=== PATIENT | male | born 1960 | race African-American/Black ===

== ENCOUNTER 2021-07-05 06:29 | Inpatient (IN) | payer MEDICAID ==
[~2021-07-05] VITALS: Ht 170.2 cm; Wt 72.7 kg
[2021-07-05 08:31] LABS: BASOPHILS % 1.3 % (0.0-2.0); EOSINOPHILS % 2.2 % (0.0-5.0); HEMOGLOBIN. 13.9 g/dL (14.0-18.0); LYMPHOCYTES % 25.9 % (20.0-50.0); MEAN CORPUSCULAR HEMOGLOBIN 29.6 pg (28.0-32.0); MEAN CORPUSCULAR VOLUME 89.2 fL (80.0-94.0); MEAN PLATELET VOLUME 8.2 fl (7.4-10.4); MONOCYTES % 10.8 % (2.0-8.0); NEUTROPHILS % 59.8 % (40.0-76.0); PLATELET 309 x1000/uL (130-400); RED CELL DISTRIBUTION WIDTH 14.3 % (11.6-14.6)
[2021-07-05 08:36] LABS: CHLORIDE 109 mEq/L (98-107)
[2021-07-05 09:53] LABS: EOSINOPHILS % 1.7 % (0.0-5.0); HEMATOCRIT. 40.1 % (42.0-52.0); HEMOGLOBIN. 13.7 g/dL (14.0-18.0); LYMPHOCYTES % 21.5 % (20.0-50.0); MEAN CORPUSCULAR VOLUME 87.8 fL (80.0-94.0); MEAN PLATELET VOLUME 7.8 fl (7.4-10.4); MONOCYTES % 9.3 % (2.0-8.0); NEUTROPHILS % 66.5 % (40.0-76.0); PLATELET 291 x1000/uL (130-400); RED BLOOD CELL COUNT 4.57 mill/uL (4.7-6.1); RED CELL DISTRIBUTION WIDTH 14.3 % (11.6-14.6)
[2021-07-05 09:56] LABS: CHLORIDE 109 mEq/L (98-107)
[2021-07-05] MEDS ORDERED: AZITHROMYCIN 500MG/250ML 250 ML IV ONE (10:30)
[2021-07-05] MEDS ORDERED: CEFTRIAXONE 1 G PREMIX 50 ML IV ONE (10:30)
[2021-07-05] MEDS ORDERED: METHYLPREDNISOLONE SOD SUCC 125 MG/2 ML VIAL IV STA (10:35)
[2021-07-05] MEDS ORDERED: ALBUTEROL (0.083%) 2.5MG/3ML NEB HHN STA (10:35)
[2021-07-05] MEDS ORDERED: IPRATROPIUM BROMIDE (0.02%) 0.5MG/2.5ML NEB HHN STA (10:35)
[2021-07-05] MEDS ORDERED: FUROSEMIDE 40MG/4ML VIAL IVP ONE (10:45)
[2021-07-05] MEDS ORDERED: ENALAPRIL 2.5MG/2ML VIAL 2ML IV ONE (10:45)
[2021-07-05] MEDS ORDERED: ENALAPRIL 1.25MG/ML VIAL 1ML IV NR (10:45)
[2021-07-05] MEDS ORDERED: GUAIFENESIN 200MG/10ML SUGAR FREE UDC PO PRN (11:00)
[2021-07-05] MEDS ORDERED: CLONIDINE 0.1MG TABLET PO PRN (11:00)
[2021-07-05] MEDS ORDERED: DOCUSATE SODIUM 100MG CAPSULE PO PRN (11:00)
[2021-07-05] MEDS ORDERED: ONDANSETRON HCL 4MG/2ML INJ IV PRN (11:00)
[2021-07-05] MEDS ORDERED: ACETAMINOPHEN 325MG TABLET PO PRN ×2 (11:00)
[2021-07-05] MEDS ORDERED: ALBUTEROL 6.7GM HFA INHALER ORI PRN (11:00)
[2021-07-05] MEDS ORDERED: MAGNESIUM/ALUMINUM HYDROXIDE/SIMETHICONE 30ML UDC PO PRN (11:00)
[2021-07-05] MEDS ORDERED: AZITHROMYCIN 500MG/250ML 250 ML IV NR (11:15)
[2021-07-05 12:21] LABS: FOLIC ACID (FOLATE) SERUM 11.1 ng/mL (>5.38)
[2021-07-05] MEDS ORDERED: GUAIFENESIN-DM 200MG-20MG/10ML UDC PO PRN (12:45)
[2021-07-05 13:03] VITALS: BP 138/92
[2021-07-05] MEDS: ENOXAPARIN 40MG/0.4ML SYR SUBCUT SCH (14:21)
[2021-07-05] MEDS: MULTIVITAMINS,THER W-MINERALS TABLET PO SCH (14:22)
[2021-07-05] MEDS: DILTIAZEM HCL 60MG TABLET PO SCH ×2 (14:22→18:25)
[2021-07-05] MEDS: FOLIC ACID 1MG TABLET PO SCH (14:22)
[2021-07-05] MEDS: THIAMINE HCL 100MG TABLET PO SCH (14:24)
[2021-07-05] MEDS: KETOROLAC 15MG/ML VIAL IV PRN (14:34)
[2021-07-05] MEDS ORDERED: ALBUTEROL 6.7GM HFA INHALER ORI SCH (15:00)
[2021-07-05 16:00] VITALS: BP 117/70
[2021-07-05 16:36] LABS: CREATINE KINASE 116 IU/L (39-308)
[2021-07-05 16:37] LABS: CREATINE KINASE MB FRACTION 2.3 ng/mL (0.5-3.6)
[2021-07-05] MEDS: FUROSEMIDE 40MG/4ML VIAL IVP SCH (18:25)
[2021-07-05 20:00] VITALS: BP 118/82
[2021-07-05] MEDS ORDERED: ALBUTEROL (0.083%) 2.5MG/3ML NEB HHN PRN (20:45)
[2021-07-05] MEDS ORDERED: ZOLPIDEM TARTRATE 5MG TABLET PO PRN (21:00)
[2021-07-05] MEDS: FAMOTIDINE 20MG TABLET PO SCH (21:21)
[2021-07-05] MEDS: SPIRONOLACTONE 25MG TABLET PO SCH (21:21)
[2021-07-05] MEDS: LISINOPRIL 20MG TABLET PO SCH (21:22)
[2021-07-05] MEDS: ASCORBIC ACID 500 MG TABLET PO SCH (21:22)
[2021-07-05 23:40] LABS: CREATINE KINASE 106 IU/L (39-308)
[2021-07-05 23:41] LABS: CREATINE KINASE MB FRACTION 1.2 ng/mL (0.5-3.6)
[2021-07-06] VITALS: BP 121/82
[2021-07-06] MEDS: DILTIAZEM HCL 60MG TABLET PO SCH ×4 (00:02→17:08)
[2021-07-06 04:00] VITALS: BP 123/56
[2021-07-06] MEDS: FUROSEMIDE 40MG/4ML VIAL IVP SCH ×2 (06:01→17:08)
[2021-07-06 06:30] LABS: HEMATOCRIT. 41.7 % (42.0-52.0); HEMOGLOBIN. 14.2 g/dL (14.0-18.0); MEAN CORPUSCULAR VOLUME 88.6 fL (80.0-94.0); MEAN PLATELET VOLUME 8.5 fl (7.4-10.4); PLATELET 339 x1000/uL (130-400); RED BLOOD CELL COUNT 4.71 mill/uL (4.7-6.1); RED CELL DISTRIBUTION WIDTH 14.3 % (11.6-14.6)
[2021-07-06 06:35] LABS: CHLORIDE 104 mEq/L (98-107)
[2021-07-06 06:52] LABS: PHOSPHORUS 3.6 mg/dL (2.5-4.9)
[2021-07-06 08:00] VITALS: BP 99/58
[2021-07-06] MEDS ORDERED: AZITHROMYCIN 500 MG in DEXT 5% WATER 250 ML IV SCH (09:00)
[2021-07-06] MEDS ORDERED: CEFTRIAXONE 1 G PREMIX 50 ML IV SCH (09:00)
[2021-07-06] MEDS: LISINOPRIL 20MG TABLET PO SCH ×2 (09:00→21:08)
[2021-07-06] MEDS: MULTIVITAMINS,THER W-MINERALS TABLET PO SCH (09:03)
[2021-07-06] MEDS: ASPIRIN 325MG EC TABLET PO SCH (09:03)
[2021-07-06] MEDS: ZINC SULFATE 220 MG ( 50 ) CAPSULE PO SCH (09:04)
[2021-07-06] MEDS: CHOLECALCIFEROL (D3) 1000 UNIT TABLET PO SCH (09:04)
[2021-07-06] MEDS: FOLIC ACID 1MG TABLET PO SCH (09:04)
[2021-07-06] MEDS: FAMOTIDINE 20MG TABLET PO SCH ×2 (09:04→21:07)
[2021-07-06] MEDS: ASCORBIC ACID 500 MG TABLET PO SCH ×2 (09:04→21:04)
[2021-07-06] MEDS: THIAMINE HCL 100MG TABLET PO SCH (09:04)
[2021-07-06] MEDS: CEFTRIAXONE 1,000 MG in DEXTROSE 5% WATER 50 ML IV SCH (09:49)
[2021-07-06] MEDS: AZITHROMYCIN 500 MG in DEXT 5% WATER 250 ML IV SCH (09:49)
[2021-07-06] MEDS: SPIRONOLACTONE 25MG TABLET PO SCH ×2 (09:49→21:07)
[2021-07-06] MEDS: ENOXAPARIN 40MG/0.4ML SYR SUBCUT SCH (10:07)
[2021-07-06] MEDS: KETOROLAC 15MG/ML VIAL IV PRN (10:38)
[2021-07-06 12:00] VITALS: BP 105/73
[2021-07-06 13:33] LABS: PLATELET ESTIMATE NORMAL
[2021-07-06 13:41] LABS: *BENZODIAZEPINES SCREEN URINE NEGATIVE (NEGATIVE); *COCAINE SCREEN URINE NEGATIVE (NEGATIVE); METHADONE URINE SCREEN NEGATIVE (NEGATIVE)
[2021-07-06 13:42] LABS: *AMPHETAMINES SCREEN URINE PRESUMTIVE POSITIVE (NEGATIVE); *BARBITURATES SCREEN URINE NEGATIVE (NEGATIVE); CANNABINOID URINE SCREEN NEGATIVE (NEGATIVE); OPIATES URINE SCREEN NEGATIVE (NEGATIVE); PHENCYCLIDINE URINE SCREEN NEGATIVE (NEGATIVE)
[2021-07-06 16:00] VITALS: BP 108/82
[2021-07-06 20:00] VITALS: BP 123/96
[2021-07-06] MEDS: DIPHENHYDRAMINE 25MG CAPSULE PO PRN (21:07)
[2021-07-07] VITALS: BP 111/74
[2021-07-07] MEDS: DILTIAZEM HCL 60MG TABLET PO SCH ×3 (00:07→12:50)
[2021-07-07 04:00] VITALS: BP 112/69
[2021-07-07] MEDS: FUROSEMIDE 40MG/4ML VIAL IVP SCH ×2 (05:15→17:46)
[2021-07-07 08:00] VITALS: BP 106/74
[2021-07-07] MEDS: ASPIRIN 325MG EC TABLET PO SCH (08:16)
[2021-07-07] MEDS: CHOLECALCIFEROL (D3) 1000 UNIT TABLET PO SCH (08:17)
[2021-07-07] MEDS: CEFTRIAXONE 1,000 MG in DEXTROSE 5% WATER 50 ML IV SCH (08:17)
[2021-07-07] MEDS: ASCORBIC ACID 500 MG TABLET PO SCH ×2 (08:17→20:45)
[2021-07-07] MEDS: MULTIVITAMINS,THER W-MINERALS TABLET PO SCH (08:17)
[2021-07-07] MEDS: FAMOTIDINE 20MG TABLET PO SCH ×2 (08:17→20:45)
[2021-07-07] MEDS: THIAMINE HCL 100MG TABLET PO SCH (08:17)
[2021-07-07] MEDS: SPIRONOLACTONE 25MG TABLET PO SCH ×2 (08:18→20:49)
[2021-07-07] MEDS: LISINOPRIL 20MG TABLET PO SCH ×2 (08:18→20:49)
[2021-07-07] MEDS: ZINC SULFATE 220 MG ( 50 ) CAPSULE PO SCH (08:18)
[2021-07-07] MEDS: FOLIC ACID 1MG TABLET PO SCH (08:28)
[2021-07-07] MEDS: AZITHROMYCIN 500 MG in DEXT 5% WATER 250 ML IV SCH (10:37)
[2021-07-07] MEDS: ENOXAPARIN 40MG/0.4ML SYR SUBCUT SCH (10:39)
[2021-07-07 12:00] VITALS: BP 112/92
[2021-07-07] MEDS: METOPROLOL SUCCINATE 50MG ER TABLET PO SCH (15:20)
[2021-07-07 16:00] VITALS: BP 104/56
[2021-07-07] MEDS: KETOROLAC 15MG/ML VIAL IV PRN (19:02)
[2021-07-07 20:00] VITALS: BP 100/57
[2021-07-08] VITALS: BP 117/78
[2021-07-08] MEDS: DIPHENHYDRAMINE 25MG CAPSULE PO PRN (02:03)
[2021-07-08 04:00] VITALS: BP 115/83
[2021-07-08] MEDS ORDERED: METOPROLOL TARTRATE 5MG/5ML VIAL IV SCH (06:15)
[2021-07-08] MEDS: FUROSEMIDE 40MG/4ML VIAL IVP SCH ×2 (06:37→17:28)
[2021-07-08] MEDS: TRAMADOL 50MG TABLET PO PRN (06:38)
[2021-07-08] MEDS: ALBUTEROL (0.083%) 2.5MG/3ML NEB HHN SCH ×3 (07:57→20:25)
[2021-07-08 08:00] VITALS: BP 108/71
[2021-07-08 08:29] LABS: CHLORIDE 101 mEq/L (98-107)
[2021-07-08] MEDS: LISINOPRIL 20MG TABLET PO SCH ×2 (09:00→21:00)
[2021-07-08] MEDS: ZINC SULFATE 220 MG ( 50 ) CAPSULE PO SCH (10:48)
[2021-07-08] MEDS: ASPIRIN 81MG EC TABLET PO SCH (10:48)
[2021-07-08] MEDS: MULTIVITAMINS,THER W-MINERALS TABLET PO SCH (10:48)
[2021-07-08] MEDS: FOLIC ACID 1MG TABLET PO SCH (10:48)
[2021-07-08] MEDS: FAMOTIDINE 20MG TABLET PO SCH ×2 (10:48→22:17)
[2021-07-08] MEDS: ASCORBIC ACID 500 MG TABLET PO SCH ×2 (10:49→22:16)
[2021-07-08] MEDS: THIAMINE HCL 100MG TABLET PO SCH (10:49)
[2021-07-08] MEDS: CHOLECALCIFEROL (D3) 1000 UNIT TABLET PO SCH (10:49)
[2021-07-08] MEDS: SPIRONOLACTONE 25MG TABLET PO SCH ×2 (10:49→22:17)
[2021-07-08] MEDS: METOPROLOL SUCCINATE 50MG ER TABLET PO SCH (10:51)
[2021-07-08] MEDS: CEFTRIAXONE 1,000 MG in DEXTROSE 5% WATER 50 ML IV SCH (10:52)
[2021-07-08] MEDS: ENOXAPARIN 40MG/0.4ML SYR SUBCUT SCH (11:33)
[2021-07-08] MEDS: AZITHROMYCIN 500 MG in DEXT 5% WATER 250 ML IV SCH (11:33)
[2021-07-08 12:00] VITALS: BP 107/70
[2021-07-08] MEDS: KETOROLAC 15MG/ML VIAL IV PRN (14:36)
[2021-07-08 16:00] VITALS: BP 92/53
[2021-07-08] MEDS ORDERED: IOHEXOL-350 100 ML BOTTLE ONE (17:03)
[2021-07-08 17:18] LABS: BG BASE EXCESS 4.2 mmol/L (-2.0-2.0); BG CARBOXYHEMOGLOBIN 0.6 % (0.5-1.5); BG FRACTION INSPIRED OXYGEN 28; BG HCO3 ACT 28.7 mmol/L (22.0-26.0); BG METHEMOGLOBIN 0.2 % (0.0-1.5); BG OXYGEN SATURATION 92.9 % (92.0-98.5); BG OXYHEMOGLOBIN 92.2 % (94.0-97.0); BG PCO2 42.8 mmHg (35.0-45.0); BG PH 7.445 (7.350-7.450); BG SAMPLE SITE RIGHT RADIAL; BG VENT MODE NASAL CANNULA
[2021-07-08 20:00] VITALS: BP 115/68
[2021-07-09] VITALS: BP 113/62
[2021-07-09] MEDS: ALBUTEROL (0.083%) 2.5MG/3ML NEB HHN SCH ×4 (01:14→20:50)
[2021-07-09 04:00] VITALS: BP 116/79
[2021-07-09] MEDS: FUROSEMIDE 40MG/4ML VIAL IVP SCH ×2 (05:53→18:01)
[2021-07-09 08:00] VITALS: BP 117/84
[2021-07-09] MEDS: SPIRONOLACTONE 25MG TABLET PO SCH ×3 (08:57→21:13)
[2021-07-09] MEDS: MULTIVITAMINS,THER W-MINERALS TABLET PO SCH ×2 (08:59→10:14)
[2021-07-09] MEDS: FAMOTIDINE 20MG TABLET PO SCH ×2 (08:59→21:12)
[2021-07-09] MEDS: FOLIC ACID 1MG TABLET PO SCH ×2 (08:59→10:14)
[2021-07-09] MEDS: ASPIRIN 81MG EC TABLET PO SCH (08:59)
[2021-07-09] MEDS: ZINC SULFATE 220 MG ( 50 ) CAPSULE PO SCH ×2 (08:59→10:13)
[2021-07-09] MEDS: METOPROLOL SUCCINATE 50MG ER TABLET PO SCH ×2 (08:59→10:15)
[2021-07-09] MEDS: LISINOPRIL 20MG TABLET PO SCH ×3 (09:00→21:00)
[2021-07-09] MEDS: CHOLECALCIFEROL (D3) 1000 UNIT TABLET PO SCH ×2 (09:00→10:14)
[2021-07-09] MEDS: ASCORBIC ACID 500 MG TABLET PO SCH ×3 (09:00→21:12)
[2021-07-09] MEDS: METOLAZONE 5MG TABLET PO SCH ×2 (09:00→10:15)
[2021-07-09] MEDS: THIAMINE HCL 100MG TABLET PO SCH ×2 (09:00→10:14)
[2021-07-09] MEDS: CEFTRIAXONE 1,000 MG in DEXTROSE 5% WATER 50 ML IV SCH (09:01)
[2021-07-09] MEDS: AZITHROMYCIN 500 MG in DEXT 5% WATER 250 ML IV SCH (10:15)
[2021-07-09] MEDS: ENOXAPARIN 40MG/0.4ML SYR SUBCUT SCH (10:51)
[2021-07-09 12:00] VITALS: BP 100/68
[2021-07-09 16:00] VITALS: BP 100/58
[2021-07-09] MEDS: TRAMADOL 50MG TABLET PO PRN (16:46)
[2021-07-09] MEDS: KETOROLAC 15MG/ML VIAL IV PRN (17:28)
[2021-07-09 20:00] VITALS: BP 101/53
[2021-07-09] MEDS: DIPHENHYDRAMINE 25MG CAPSULE PO PRN (22:57)
[2021-07-10] VITALS: BP 103/59
[2021-07-10] MEDS: ALBUTEROL (0.083%) 2.5MG/3ML NEB HHN SCH ×3 (02:10→14:46)
[2021-07-10 04:00] VITALS: BP 96/65
[2021-07-10] MEDS: FUROSEMIDE 40MG/4ML VIAL IVP SCH ×2 (05:31→18:00)
[2021-07-10 08:00] VITALS: BP 114/93
[2021-07-10] MEDS: CHOLECALCIFEROL (D3) 1000 UNIT TABLET PO SCH (09:36)
[2021-07-10] MEDS: ASCORBIC ACID 500 MG TABLET PO SCH ×2 (09:37→20:22)
[2021-07-10] MEDS: LISINOPRIL 20MG TABLET PO SCH ×2 (09:37→20:28)
[2021-07-10] MEDS: METOPROLOL SUCCINATE 50MG ER TABLET PO SCH (09:37)
[2021-07-10] MEDS: FOLIC ACID 1MG TABLET PO SCH (09:37)
[2021-07-10] MEDS: ASPIRIN 81MG EC TABLET PO SCH (09:37)
[2021-07-10] MEDS: FAMOTIDINE 20MG TABLET PO SCH ×2 (09:37→20:22)
[2021-07-10] MEDS: MULTIVITAMINS,THER W-MINERALS TABLET PO SCH (09:37)
[2021-07-10] MEDS: ZINC SULFATE 220 MG ( 50 ) CAPSULE PO SCH (09:38)
[2021-07-10] MEDS: CEFTRIAXONE 1,000 MG in DEXTROSE 5% WATER 50 ML IV SCH (09:38)
[2021-07-10] MEDS: SPIRONOLACTONE 25MG TABLET PO SCH ×2 (09:38→20:27)
[2021-07-10] MEDS: THIAMINE HCL 100MG TABLET PO SCH (09:38)
[2021-07-10] MEDS: METOLAZONE 5MG TABLET PO SCH (09:43)
[2021-07-10] MEDS: ENOXAPARIN 40MG/0.4ML SYR SUBCUT SCH (10:01)
[2021-07-10 12:00] VITALS: BP 96/50
[2021-07-10 16:00] VITALS: BP 90/43
[2021-07-10 20:00] VITALS: BP 95/55
[2021-07-11] VITALS: BP 96/52
[2021-07-11 04:00] VITALS: BP 105/38
[2021-07-11] MEDS: FUROSEMIDE 40MG/4ML VIAL IVP SCH ×2 (06:00→18:00)
[2021-07-11] MEDS: DIPHENHYDRAMINE 25MG CAPSULE PO PRN (06:22)
[2021-07-11 08:30] VITALS: BP 90/47
[2021-07-11] MEDS: CHOLECALCIFEROL (D3) 1000 UNIT TABLET PO SCH (08:36)
[2021-07-11] MEDS: FAMOTIDINE 20MG TABLET PO SCH ×2 (08:36→21:23)
[2021-07-11] MEDS: MULTIVITAMINS,THER W-MINERALS TABLET PO SCH (08:36)
[2021-07-11] MEDS: ASPIRIN 81MG EC TABLET PO SCH (08:36)
[2021-07-11] MEDS: ASCORBIC ACID 500 MG TABLET PO SCH ×2 (08:36→21:23)
[2021-07-11] MEDS: ZINC SULFATE 220 MG ( 50 ) CAPSULE PO SCH (08:36)
[2021-07-11] MEDS: THIAMINE HCL 100MG TABLET PO SCH (08:36)
[2021-07-11] MEDS: LISINOPRIL 20MG TABLET PO SCH ×2 (08:36→21:00)
[2021-07-11] MEDS: FOLIC ACID 1MG TABLET PO SCH (08:36)
[2021-07-11] MEDS: METOPROLOL SUCCINATE 50MG ER TABLET PO SCH (08:37)
[2021-07-11] MEDS: METOLAZONE 5MG TABLET PO SCH (08:37)
[2021-07-11] MEDS: SPIRONOLACTONE 25MG TABLET PO SCH ×2 (08:38→21:00)
[2021-07-11] MEDS: ALBUTEROL (0.083%) 2.5MG/3ML NEB HHN SCH ×2 (09:01→13:44)
[2021-07-11] MEDS: ENOXAPARIN 40MG/0.4ML SYR SUBCUT SCH (11:09)
[2021-07-11 12:00] VITALS: BP 95/55
[2021-07-11 16:00] VITALS: BP 86/54
[2021-07-11 20:00] VITALS: BP 99/47
[2021-07-12] VITALS: BP 87/55
[2021-07-12 04:00] VITALS: BP 107/65
[2021-07-12] MEDS: FUROSEMIDE 40MG/4ML VIAL IVP SCH (06:00)
[2021-07-12 08:00] VITALS: BP 118/66
[2021-07-12] MEDS ORDERED: VERAPAMIL HCL 2.5 MG/1 ML 2ML VIAL IV ONE (08:29)
[2021-07-12] MEDS ORDERED: IODIXANOL 320MG/ML 100 ML BOTTLE IV ONE (08:29)
[2021-07-12] MEDS ORDERED: LIDOCAINE HCL 1% 20ML VIAL (Pyxis) INJ ONE (08:29)
[2021-07-12] MEDS ORDERED: NICARDIPINE 100MCG/ML 10ML VIAL (CATH LAB) IV ONE (08:36)
[2021-07-12] MEDS ORDERED: HEPARIN SODIUM 1,000 UNIT/1ML VIAL IV ONE (08:36)
[2021-07-12] MEDS ORDERED: NITROGLYCERIN 50MCG/ML 10ML VIAL (CATH LAB) IV ONE (08:36)
[2021-07-12] MEDS ORDERED: FENTANYL CITRATE/PF 50MCG/ML 2ML VIAL ONE (08:46)
[2021-07-12] MEDS ORDERED: MIDAZOLAM HCL 2 MG/2 ML VIAL ONE (08:47)
[2021-07-12] MEDS: LISINOPRIL 20MG TABLET PO SCH (09:00)
[2021-07-12] MEDS: FOLIC ACID 1MG TABLET PO SCH (09:00)
[2021-07-12] MEDS: METOLAZONE 5MG TABLET PO SCH (09:00)
[2021-07-12] MEDS: ZINC SULFATE 220 MG ( 50 ) CAPSULE PO SCH (09:00)
[2021-07-12] MEDS: CHOLECALCIFEROL (D3) 1000 UNIT TABLET PO SCH (09:00)
[2021-07-12] MEDS: ASPIRIN 81MG EC TABLET PO SCH (09:00)
[2021-07-12] MEDS: ALBUTEROL (0.083%) 2.5MG/3ML NEB HHN SCH ×2 (09:00→11:40)
[2021-07-12] MEDS: THIAMINE HCL 100MG TABLET PO SCH (09:00)
[2021-07-12] MEDS: MULTIVITAMINS,THER W-MINERALS TABLET PO SCH (09:00)
[2021-07-12] MEDS: FAMOTIDINE 20MG TABLET PO SCH (09:00)
[2021-07-12] MEDS: ASCORBIC ACID 500 MG TABLET PO SCH (09:00)
[2021-07-12] MEDS: METOPROLOL SUCCINATE 50MG ER TABLET PO SCH (09:00)
[2021-07-12] MEDS: SPIRONOLACTONE 25MG TABLET PO SCH (09:00)
[2021-07-12] MEDS ORDERED: ATROPINE SULFATE 1MG/10ML SYR IV PRN (10:15)
[2021-07-12] MEDS ORDERED: FENTANYL CITRATE/PF 50MCG/ML 5ML VIAL ONE (10:54)
[2021-07-12] MEDS ORDERED: MIDAZOLAM HCL 5 MG/5 ML VIAL ONE (10:54)
[2021-07-12] MEDS: ENOXAPARIN 40MG/0.4ML SYR SUBCUT SCH (11:00)
[2021-07-12] MEDS ORDERED: MORPHINE SULFATE 2 MG/ML CPJ (NOT FOR IM USE) IV SCH (13:45)
[2021-07-12 17:17] VITALS: BP 117/70
[2021-07-14] MEDS ORDERED: FUROSEMIDE 40MG TABLET PO SCH (09:00)
== END 2021-07-12 17:40 | disposition home or self-care (01) | DRG 192 ==
LOC: ER 06:29 → 7WST 10:33 → EDBEDREQ 10:52 → EDBEDREQTM 10:52 → ENRESERV 12:47 → 7EST 16:09
PROVIDERS: ADMIT Internal Medicine; ATTEND Internal Medicine
PROC: 4A023N7 Measurement of Cardiac Sampling and Pressure, Left Heart, Percutaneous Approach (ICD-10-PCS; principal; 2021-07-05)
PROC: B211YZZ Fluoroscopy of Multiple Coronary Arteries using Other Contrast (ICD-10-PCS; 2021-07-05)
PROC: 4A033BC Measurement of Arterial Pressure, Coronary, Percutaneous Approach (ICD-10-PCS; 2021-07-05)
DX: I11.0 Hypertensive heart disease with heart failure (principal); J96.01 Acute respiratory failure with hypoxia; G92.8 Other toxic encephalopathy; I47.2 Ventricular tachycardia; E44.0 Moderate protein-calorie malnutrition; D63.8 Anemia in other chronic diseases classified elsewhere; I27.20 Pulmonary hypertension, unspecified; I42.8 Other cardiomyopathies; I25.110 Atherosclerotic heart disease of native coronary artery with unstable angina pectoris; I48.91 Unspecified atrial fibrillation; I50.23 Acute on chronic systolic (congestive) heart failure; E03.9 Hypothyroidism, unspecified; E78.00 Pure hypercholesterolemia, unspecified; E78.5 Hyperlipidemia, unspecified; F10.10 Alcohol abuse, uncomplicated; F15.90 Other stimulant use, unspecified, uncomplicated; F17.210 Nicotine dependence, cigarettes, uncomplicated; I07.1 Rheumatic tricuspid insufficiency; I45.10 Unspecified right bundle-branch block; J44.9 Chronic obstructive pulmonary disease, unspecified; Z60.2 Problems related to living alone; Z20.822 Contact with and (suspected) exposure to COVID-19; Z91.14 Patient's other noncompliance with medication regimen; Z68.25 Body mass index [BMI] 25.0-25.9, adult
CPT/HCPCS: 36415; 36600; 71045; 71275; 80048; 80053; 80061; 80305; 82375; 82550; 82553; 82607; 82728; 82746; 82805; 83036; 83540; 83550; 83615; 83735; 83880; 84100; 84145; 84484; 85025; 85347; 85379; 87804; 93005; 93306; 93458; 93571; 93970; 94640; 99291; C1769; C1887; C1893; J0456; J0696; J1644; J1650; J1885; J1940; J2250; J2270; J2930; J3010; J3490; J7060; Q0163; Q9967; U0003; U0005